=== PATIENT | male | born 1960 | race African-American/Black ===

== ENCOUNTER 2017-03-19 19:27 | Emergency (ER) | payer OTHER ==
[~2017-03-19] VITALS: Ht 208.3 cm; Wt 120.5 kg
[~2017-03-19 19:27] MED LIST: BUME2TAB18 PO; CARV3.1262 PO; ENAL10 PO; METO10TA8 PO; MS100DRIP PO; WARF5TAB6 PO
[2017-03-19] MEDS ORDERED: MORPHINE SULFATE 4 MG/ML SYRINGE IM ONE (20:15)
[2017-03-19] MEDS ORDERED: ONDANSETRON HCL 4 MG/2 ML VIAL IM ONE (20:15)
[2017-03-19 21:00] LABS: BASOPHILS % (AUTO) 0.3 % (0.0-2.0); EOSINOPHILS % (AUTO) 1.8 % (1.0-6.0); HEMATOCRIT 41.7 % (41-53); HEMOGLOBIN 13.8 g/dL (13.5-17.5); LYMPHOCYTES # (AUTO) 3.5 K/uL (1.0-4.8); LYMPHOCYTES % (AUTO) 51.1 % (22.0-44.0); MEAN CORPUSCULAR HEMOGLOBIN 31.8 pg (26.0-34.0); MEAN CORPUSCULAR VOLUME 97 fL (80-100); MONOCYTES # (AUTO) 0.5 K/uL (0.1-1.0); MONOCYTES % (AUTO) 7.5 % (2.0-9.0); NEUTROPHILS # (AUTO) 2.7 K/uL (1.8-7.7); NEUTROPHILS % (AUTO) 39.3 % (40.0-70.0); PLATELET COUNT (AUTO) 142 K/uL (150-450); RED BLOOD CELL COUNT(AUTO) 4.32 MIL/uL (4.50-5.90); RED CELL DISTRIBUTION WIDTH 14.6 % (11.5-14.5); WHITE BLOOD COUNT (AUTO) 6.9 K/uL (4.5-11.0)
[2017-03-19 21:10] LABS: INR 1.1 (0.9-1.1); PROTHROMBIN TIME 11.9 SEC (9.4-11.6)
[2017-03-19] MEDS ORDERED: OxyCODONE HCL/ACETAMINOPHEN 5-325 MG TABLET PO ONE (23:00)
[2017-03-19 23:04] VITALS: BP 126/65
== END 2017-03-19 23:07 | disposition home or self-care (01) ==
LOC: EMS 19:28
DX: M54.5 Low back pain (principal); G89.29 Other chronic pain; I11.0 Hypertensive heart disease with heart failure; I50.9 Heart failure, unspecified; I25.10 Atherosclerotic heart disease of native coronary artery without angina pectoris; I48.91 Unspecified atrial fibrillation; Z88.6 Allergy status to analgesic agent; Z88.8 Allergy status to other drugs, medicaments and biological substances; W01.0XXA Fall on same level from slipping, tripping and stumbling without subsequent striking against object, initial encounter; Y93.89 Activity, other specified; Y92.89 Other specified places as the place of occurrence of the external cause; Y99.8 Other external cause status
CPT/HCPCS: 36415; 70450; 72131; 85025; 85610; 85730; 96372; 99285; J2270; J2405

== ENCOUNTER 2017-08-09 20:23 | Inpatient (IN) | payer OTHER ==
[~2017-08-09] VITALS: Ht 208.3 cm; Wt 247.1 kg
[~2017-08-09 20:23] MED LIST changes: -ENAL10 PO; +ENAL10TA2 PO
[2017-08-09] MEDS ORDERED: KDUR20 PO (20:40)
[2017-08-09] MEDS ORDERED: ENAL20 PO (20:40)
[2017-08-09] MEDS ORDERED: ZARO2.5 PO (20:40)
[2017-08-09] MEDS ORDERED: EDOX15TA PO (20:40)
[2017-08-09] MEDS ORDERED: AMIO200T44 PO (20:40)
[2017-08-09] MEDS ORDERED: HYDR-309 PO (20:40)
[2017-08-09] MEDS ORDERED: MORP30CA17 PO (20:40)
[2017-08-09] MEDS ORDERED: BUME1TAB17 PO (20:40)
[2017-08-09] MEDS ORDERED: DIGO125T PO (20:40)
[2017-08-09 20:51] LABS: BASOPHILS % (AUTO) 0.9 % (0.0-2.0); EOSINOPHILS % (AUTO) 2.1 % (1.0-6.0); HEMOGLOBIN 14.3 g/dL (13.5-17.5); LYMPHOCYTES # (AUTO) 3.3 K/uL (1.0-4.8); LYMPHOCYTES % (AUTO) 47.5 % (22.0-44.0); MEAN CORPUSCULAR HEMOGLOBIN 33.1 pg (26.0-34.0); MEAN CORPUSCULAR VOLUME 97 fL (80-100); MONOCYTES # (AUTO) 0.4 K/uL (0.1-1.0); MONOCYTES % (AUTO) 5.1 % (2.0-9.0); NEUTROPHILS # (AUTO) 3.1 K/uL (1.8-7.7); NEUTROPHILS % (AUTO) 44.4 % (40.0-70.0); PLATELET COUNT (AUTO) 195 K/uL (150-450); RED BLOOD CELL COUNT(AUTO) 4.33 MIL/uL (4.50-5.90); RED CELL DISTRIBUTION WIDTH 14.8 % (11.5-14.5)
[2017-08-09 21:01] LABS: ANION GAP 12 mmol/L (8-16); CALCIUM, TOTAL 9.2 mg/dL (8.8-10.5); CARBON DIOXIDE 29 mmol/L (22-29); CHLORIDE 103 mmol/L (98-107); CREATININE 1.34 mg/dL (0.60-1.30); GLOMERULAR FILTR. RATE CALC > 60 mL/min (>60); GLUCOSE,RANDOM 68 mg/dL (70-110); POTASSIUM 3.1 mmol/L (3.5-5.1); SODIUM SERUM 144 mmol/L (136-145); UREA NITROGEN, BLOOD 16 mg/dL (7-18)
[2017-08-09 21:23] LABS: B-TYPE NATRIURETIC PEPTIDE 543 pg/mL (0-100)
[2017-08-09 21:26] LABS: ALANINE AMINOTRANSFERASE 6 U/L (12-78); ALKALINE PHOSPHATASE 51 U/L (46-116); ASPARTATE AMINOTRANSFERASE 15 U/L (15-37); BILIRUBIN,TOTAL 0.3 mg/dL (0.1-1.0); CREATINE KINASE, TOTAL 147 U/L (39-308); TOTAL PROTEIN, SERUM 8.4 g/dL (6.4-8.2)
[2017-08-09] MEDS ORDERED: ONDANSETRON HCL 4 MG/2 ML VIAL IVP ONE (21:30)
[2017-08-09] MEDS ORDERED: MORPHINE SULFATE 2 MG/ML SYRINGE IVP ONE (21:30)
[2017-08-09] MEDS ORDERED: NITROGLYCERIN 2% (1 GM=INCH) PACKET TP ONE (21:30)
[2017-08-09 21:54] LABS: DIGOXIN 0.58 ng/mL (0.90-2.00)
[2017-08-09] MEDS ORDERED: POTASSIUM CHLORIDE 10% 40 MEQ/30 ML LIQUID UDCUP PO ONE (22:30)
[2017-08-09] MEDS ORDERED: 0.9% SODIUM CHLORIDE 10 ML SYRINGE IVP PRN (23:00)
[2017-08-09] MEDS ORDERED: ONDANSETRON HCL 4 MG/2 ML VIAL IVP PRN ×2 (23:00→23:30)
[2017-08-09] MEDS ORDERED: ACETAMINOPHEN 325 MG TABLET PO PRN ×2 (23:00→23:30)
[2017-08-09 23:28] VITALS: BP 157/99
[2017-08-09] MEDS ORDERED: BISACODYL 10 MG RECTAL RECTAL SUPPOSITORY PR PRN (23:30)
[2017-08-09] MEDS ORDERED: MAGNESIUM HYDROXIDE SUSPENSION 30 ML UDCUP PO PRN (23:30)
[2017-08-09] MEDS ORDERED: ZOLPIDEM TARTRATE 5 MG TABLET PO PRN (23:30)
[2017-08-09] MEDS: NITROGLYCERIN 2% (1 GM=INCH) PACKET TP SCH (23:42)
[2017-08-09] MEDS: HEPARIN SODIUM,PORCINE 5,000 UNITS/ML VIAL SQ SCH (23:42)
[2017-08-10] MEDS: MORPHINE SULFATE 2 MG/ML SYRINGE IVP PRN ×5 (00:06→19:53)
[2017-08-10 05:46] VITALS: BP 150/88
[2017-08-10 07:06] LABS: BASOPHILS % (AUTO) 0.7 % (0.0-2.0); EOSINOPHILS % (AUTO) 2.1 % (1.0-6.0); HEMATOCRIT 34.6 % (41-53); HEMOGLOBIN 11.8 g/dL (13.5-17.5); LYMPHOCYTES # (AUTO) 2.5 K/uL (1.0-4.8); LYMPHOCYTES % (AUTO) 43.3 % (22.0-44.0); MEAN CORPUSCULAR HEMOGLOBIN 32.9 pg (26.0-34.0); MEAN CORPUSCULAR HGB CONC 34.1 G/dL (31.0-37.0); MEAN CORPUSCULAR VOLUME 97 fL (80-100); MONOCYTES # (AUTO) 0.6 K/uL (0.1-1.0); MONOCYTES % (AUTO) 10.9 % (2.0-9.0); NEUTROPHILS # (AUTO) 2.5 K/uL (1.8-7.7); PLATELET COUNT (AUTO) 155 K/uL (150-450); RED BLOOD CELL COUNT(AUTO) 3.58 MIL/uL (4.50-5.90)
[2017-08-10 07:26] VITALS: BP 152/88
[2017-08-10 07:33] LABS: ALBUMIN 3.1 g/dL (3.4-5.0); BILIRUBIN,TOTAL 0.3 mg/dL (0.1-1.0); CALCIUM, TOTAL 8.4 mg/dL (8.8-10.5); CHOL/HDL RATIO 1.6 (4.2-7.3); CREATININE 1.5 mg/dL (0.60-1.30); POTASSIUM 3.8 mmol/L (3.5-5.1); TOTAL PROTEIN, SERUM 6.2 g/dL (6.4-8.2)
[2017-08-10] MEDS: HEPARIN SODIUM,PORCINE 5,000 UNITS/ML VIAL SQ SCH (08:00)
[2017-08-10] MEDS: DOCUSATE SODIUM 100 MG CAPSULE PO SCH ×2 (09:00→19:52)
[2017-08-10] MEDS: BUMETANIDE 1 MG TABLET PO SCH (09:18)
[2017-08-10] MEDS: NITROGLYCERIN 2% (1 GM=INCH) PACKET TP SCH ×2 (09:18→15:56)
[2017-08-10] MEDS: POTASSIUM CHLORIDE 20 MEQ ER TABLET PO SCH ×2 (09:19→19:53)
[2017-08-10] MEDS: DIGOXIN 125 MCG TABLET PO SCH (09:19)
[2017-08-10] MEDS: PANTOPRAZOLE SODIUM 40 MG DR TABLET PO SCH (09:19)
[2017-08-10] MEDS: AMIODARONE HCL 200 MG TABLET PO SCH ×2 (09:19→19:53)
[2017-08-10] MEDS: CARVEDILOL 6.25 MG TABLET PO SCH ×2 (09:19→19:53)
[2017-08-10] MEDS: ENALAPRIL MALEATE 10 MG TABLET PO SCH (09:20)
[2017-08-10] MEDS: METOLAZONE 2.5 MG TABLET PO SCH ×2 (09:21→19:52)
[2017-08-10] MEDS: APIXABAN 5 MG TABLET PO SCH ×2 (10:27→19:53)
[2017-08-10 11:30] VITALS: BP 157/97
[2017-08-10 16:05] VITALS: BP 150/98
[2017-08-10 20:00] VITALS: BP 140/83
[2017-08-10 23:55] VITALS: BP 133/90
[2017-08-11] MEDS: NITROGLYCERIN 2% (1 GM=INCH) PACKET TP SCH ×3 (00:39→16:13)
[2017-08-11] MEDS: MORPHINE SULFATE 2 MG/ML SYRINGE IVP PRN ×3 (03:03→20:23)
[2017-08-11 04:00] VITALS: BP 153/94
[2017-08-11] MEDS: HYDROCODONE/ACETAMINOPHEN 5-325 MG TABLET PO PRN ×2 (05:28→16:13)
[2017-08-11 06:54] LABS: BASOPHILS # (AUTO) 0.01 K/uL (0.00-0.20); BASOPHILS % (AUTO) 0.1 % (0.0-2.0); EOSINOPHILS # (AUTO) 0.11 K/uL (0.00-0.70); EOSINOPHILS % (AUTO) 1.89 % (1.0-6.0); HEMATOCRIT 39.3 % (41-53); LYMPHOCYTES # (AUTO) 2.6 K/uL (1.0-4.8); LYMPHOCYTES % (AUTO) 43.8 % (22.0-44.0); MEAN CORPUSCULAR HEMOGLOBIN 32.6 pg (26.0-34.0); MEAN CORPUSCULAR VOLUME 99 fL (80-100); MONOCYTES # (AUTO) 0.6 K/uL (0.1-1.0); MONOCYTES % (AUTO) 9.3 % (2.0-9.0); NEUTROPHILS # (AUTO) 2.7 K/uL (1.8-7.7); NEUTROPHILS % (AUTO) 44.9 % (40.0-70.0); PLATELET COUNT (AUTO) 147 K/uL (150-450); RED BLOOD CELL COUNT(AUTO) 3.98 MIL/uL (4.50-5.90)
[2017-08-11 07:16] LABS: ANION GAP 6 mmol/L (8-16); CALCIUM, TOTAL 8.5 mg/dL (8.8-10.5); CARBON DIOXIDE 33 mmol/L (22-29); CHLORIDE 100 mmol/L (98-107); CREATININE 1.45 mg/dL (0.60-1.30); GLOMERULAR FILTR. RATE CALC > 60 mL/min (>60); GLUCOSE,RANDOM 88 mg/dL (70-110); POTASSIUM 4.1 mmol/L (3.5-5.1); SODIUM SERUM 139 mmol/L (136-145); UREA NITROGEN, BLOOD 21 mg/dL (7-18)
[2017-08-11 07:23] VITALS: BP 140/90
[2017-08-11] MEDS: DOCUSATE SODIUM 100 MG CAPSULE PO SCH ×2 (08:20→21:00)
[2017-08-11] MEDS: ENALAPRIL MALEATE 10 MG TABLET PO SCH (08:23)
[2017-08-11] MEDS: APIXABAN 5 MG TABLET PO SCH (08:23)
[2017-08-11] MEDS: DIGOXIN 125 MCG TABLET PO SCH (08:23)
[2017-08-11] MEDS: METOLAZONE 2.5 MG TABLET PO SCH ×2 (08:23→20:23)
[2017-08-11] MEDS: BUMETANIDE 1 MG TABLET PO SCH (08:24)
[2017-08-11] MEDS: AMIODARONE HCL 200 MG TABLET PO SCH (08:24)
[2017-08-11] MEDS: CARVEDILOL 6.25 MG TABLET PO SCH ×2 (08:24→20:23)
[2017-08-11] MEDS: POTASSIUM CHLORIDE 20 MEQ ER TABLET PO SCH ×2 (08:24→20:23)
[2017-08-11] MEDS: PANTOPRAZOLE SODIUM 40 MG DR TABLET PO SCH (08:24)
[2017-08-11 11:37] VITALS: BP 133/83
[2017-08-11 15:28] VITALS: BP 133/97
[2017-08-11 19:57] VITALS: BP 167/107
[2017-08-12] MEDS: NITROGLYCERIN 2% (1 GM=INCH) PACKET TP SCH ×2 (00:22→11:28)
[2017-08-12 00:45] VITALS: BP 134/85
[2017-08-12] MEDS: MORPHINE SULFATE 2 MG/ML SYRINGE IVP PRN (03:45)
[2017-08-12 05:00] VITALS: BP 164/95
[2017-08-12 06:26] LABS: BASOPHILS # (AUTO) 0.04 K/uL (0.00-0.20); BASOPHILS % (AUTO) 0.6 % (0.0-2.0); EOSINOPHILS # (AUTO) 0.13 K/uL (0.00-0.70); EOSINOPHILS % (AUTO) 2.17 % (1.0-6.0); HEMATOCRIT 38.6 % (41-53); HEMOGLOBIN 13.1 g/dL (13.5-17.5); LYMPHOCYTES # (AUTO) 2.1 K/uL (1.0-4.8); LYMPHOCYTES % (AUTO) 34.1 % (22.0-44.0); MEAN CORPUSCULAR HEMOGLOBIN 32.8 pg (26.0-34.0); MEAN CORPUSCULAR HGB CONC 33.9 G/dL (31.0-37.0); MEAN CORPUSCULAR VOLUME 97 fL (80-100); MONOCYTES # (AUTO) 0.6 K/uL (0.1-1.0); MONOCYTES % (AUTO) 9.7 % (2.0-9.0); NEUTROPHILS # (AUTO) 3.2 K/uL (1.8-7.7); NEUTROPHILS % (AUTO) 53.3 % (40.0-70.0); PLATELET COUNT (AUTO) 142 K/uL (150-450); RED BLOOD CELL COUNT(AUTO) 3.99 MIL/uL (4.50-5.90)
[2017-08-12 06:29] LABS: CALCIUM, TOTAL 8.4 mg/dL (8.8-10.5); CREATININE 1.63 mg/dL (0.60-1.30); POTASSIUM 3.6 mmol/L (3.5-5.1)
[2017-08-12 08:45] VITALS: BP 151/102
[2017-08-12] MEDS ORDERED: AMIODARONE HCL 200 MG TABLET PO SCH (09:00)
[2017-08-12 09:21] VITALS: BP 188/122
[2017-08-12] MEDS ORDERED: BENZOCAINE 20% 50 MCG/SPRAY 57 GM ONE (09:22)
[2017-08-12] MEDS ORDERED: MIDAZOLAM HCL 2 MG/2 ML VIAL ONE ×2 (09:55→10:09)
[2017-08-12] MEDS ORDERED: FentaNYL CITRATE-PF 100 MCG/2 ML VIAL ONE (09:55)
[2017-08-12] MEDS ORDERED: MIDAZOLAM HCL 2 MG/2 ML VIAL IVP ONE ×5 (10:00→10:30)
[2017-08-12] MEDS ORDERED: FentaNYL CITRATE-PF 100 MCG/2 ML VIAL IVP ONE ×5 (10:00→10:30)
[2017-08-12] MEDS ORDERED: BENZOCAINE 20% 50 MCG/SPRAY 57 GM TP ONE (10:15)
[2017-08-12 10:44] VITALS: BP 151/103
[2017-08-12] MEDS: CARVEDILOL 6.25 MG TABLET PO SCH (11:31)
[2017-08-12] MEDS: DOCUSATE SODIUM 100 MG CAPSULE PO SCH (11:31)
[2017-08-12] MEDS: HYDROCODONE/ACETAMINOPHEN 5-325 MG TABLET PO PRN (11:32)
[2017-08-12] MEDS: BUMETANIDE 1 MG TABLET PO SCH (11:33)
[2017-08-12] MEDS: POTASSIUM CHLORIDE 20 MEQ ER TABLET PO SCH (11:33)
[2017-08-12] MEDS: METOLAZONE 2.5 MG TABLET PO SCH (11:33)
[2017-08-12] MEDS: PANTOPRAZOLE SODIUM 40 MG DR TABLET PO SCH (11:33)
[2017-08-12] MEDS: ENALAPRIL MALEATE 10 MG TABLET PO SCH (11:33)
[2017-08-12 12:01] VITALS: BP 145/88
[2017-08-12] MEDS ORDERED: METOPROLOL TARTRATE 5 MG/5 ML VIAL ONE (12:35)
[2017-08-12] MEDS ORDERED: NITROGLYCERIN 400 MCG/SUBLINGUAL SPRAY 4.9 GM BOTTLE SL ONE (12:36)
[2017-08-12] MEDS ORDERED: IOVERSOL 350 MG/ML 150 ML VIAL ONE (12:41)
[2017-08-12] MEDS ORDERED: SODIUM CHLORIDE 0.9% 1,000 ML IV ONE (12:42)
== END 2017-08-12 15:15 | disposition home or self-care (01) | DRG 198 ==
LOC: EMS 20:25 → 5N 22:48
PROVIDERS: ADMIT Internal Medicine; ATTEND Internal Medicine
PROC: 4B02XTZ Measurement of Cardiac Defibrillator, External Approach (ICD-10-PCS; 2017-08-11)
PROC: B245ZZ4 Ultrasonography of Left Heart, Transesophageal (ICD-10-PCS; principal; 2017-08-12)
DX: R07.9 Chest pain, unspecified (principal); I25.10 Atherosclerotic heart disease of native coronary artery without angina pectoris; I50.20 Unspecified systolic (congestive) heart failure; I42.0 Dilated cardiomyopathy; I13.0 Hypertensive heart and chronic kidney disease with heart failure and stage 1 through stage 4 chronic kidney disease, or unspecified chronic kidney disease; E87.6 Hypokalemia; I48.2 Chronic atrial fibrillation; F17.200 Nicotine dependence, unspecified, uncomplicated; I07.1 Rheumatic tricuspid insufficiency; G89.29 Other chronic pain; M54.9 Dorsalgia, unspecified; S00.03XA Contusion of scalp, initial encounter; W18.30XA Fall on same level, unspecified, initial encounter; N18.3 Chronic kidney disease, stage 3 (moderate); Z95.810 Presence of automatic (implantable) cardiac defibrillator; Z88.6 Allergy status to analgesic agent; Z79.899 Other long term (current) drug therapy; Y93.89 Activity, other specified; Y92.89 Other specified places as the place of occurrence of the external cause; Y99.8 Other external cause status
CPT/HCPCS: 70450; 75574; 93005; 93306; 93312; 93880; 96374; 99291; J1644; J2250; J2270; J2405; J3010; J3490; J7030

== ENCOUNTER 2017-09-01 22:14 | Inpatient (IN) | payer OTHER ==
[~2017-09-01] VITALS: Ht 208.3 cm; Wt 116.1 kg
[~2017-09-01 22:14] MED LIST changes: +AMIO200T44 PO; +BUME1TAB17 PO; -BUME2TAB18 PO; +EDOX15TA PO; -ENAL10TA2 PO; +ENAL20 PO; +HYDR-309 PO; +KDUR20 PO; -METO10TA8 PO; +MORP30CA17 PO; -MS100DRIP PO; -WARF5TAB6 PO; +ZARO2.5 PO
[2017-09-01 22:31] LABS: BASOPHILS % (AUTO) 0.6 % (0.0-2.0); EOSINOPHILS % (AUTO) 1.9 % (1.0-6.0); HEMATOCRIT 42.2 % (41-53); HEMOGLOBIN 14.2 g/dL (13.5-17.5); LYMPHOCYTES # (AUTO) 4.7 K/uL (1.0-4.8); LYMPHOCYTES % (AUTO) 53.9 % (22.0-44.0); MEAN CORPUSCULAR HEMOGLOBIN 32.6 pg (26.0-34.0); MEAN CORPUSCULAR HGB CONC 33.6 G/dL (31.0-37.0); MEAN CORPUSCULAR VOLUME 97 fL (80-100); MONOCYTES # (AUTO) 0.5 K/uL (0.1-1.0); MONOCYTES % (AUTO) 5.4 % (2.0-9.0); NEUTROPHILS # (AUTO) 3.4 K/uL (1.8-7.7); NEUTROPHILS % (AUTO) 38.2 % (40.0-70.0); PLATELET COUNT (AUTO) 150 K/uL (150-450); RED BLOOD CELL COUNT(AUTO) 4.34 MIL/uL (4.50-5.90); RED CELL DISTRIBUTION WIDTH 15.3 % (11.5-14.5); WHITE BLOOD COUNT (AUTO) 8.8 K/uL (4.5-11.0)
[2017-09-01 22:42] LABS: INR 1.1 (0.9-1.1); PROTHROMBIN TIME 11.5 SEC (9.4-11.6)
[2017-09-01 22:45] LABS: ANION GAP 13 mmol/L (8-16); CALCIUM, TOTAL 8.8 mg/dL (8.8-10.5); CARBON DIOXIDE 27 mmol/L (22-29); CHLORIDE 100 mmol/L (98-107); GLOMERULAR FILTR. RATE CALC 59 mL/min (>60); POTASSIUM 3.1 mmol/L (3.5-5.1); SODIUM SERUM 140 mmol/L (136-145); UREA NITROGEN, BLOOD 20 mg/dL (7-18)
[2017-09-01 22:54] LABS: B-TYPE NATRIURETIC PEPTIDE 427 pg/mL (0-100)
[2017-09-01] MEDS ORDERED: ONDANSETRON HCL 4 MG/2 ML VIAL IVP ONE (23:00)
[2017-09-01] MEDS ORDERED: MORPHINE SULFATE 4 MG/ML SYRINGE IVP ONE (23:00)
[2017-09-01] MEDS ORDERED: NITROGLYCERIN 2% (1 GM=INCH) PACKET TP ONE (23:00)
[2017-09-01 23:09] LABS: ALANINE AMINOTRANSFERASE 10 U/L (12-78); ASPARTATE AMINOTRANSFERASE 17 U/L (15-37); BILIRUBIN,TOTAL 0.4 mg/dL (0.1-1.0); CREATINE KINASE, TOTAL 152 U/L (39-308); TOTAL PROTEIN, SERUM 8.3 g/dL (6.4-8.2)
[2017-09-01 23:37] LABS: CREATINE KINASE MB 1.6 ng/mL (0-5)
[2017-09-01] MEDS ORDERED: SODIUM CHLORIDE 0.9% 500 ML IV ONE (23:45)
[2017-09-02] MEDS ORDERED: POTASSIUM CHLORIDE 20 MEQ ER TABLET PO ONE
[2017-09-02] MEDS ORDERED: OXYGEN THERAPY IH SCH
[2017-09-02] MEDS ORDERED: MORPHINE SULFATE 4 MG/ML SYRINGE IVP ONE
[2017-09-02 01:03] LABS: GLUCOSE,POINT OF CARE 78 MG/DL (70-110)
[2017-09-02] MEDS ORDERED: ONDANSETRON HCL 4 MG/2 ML VIAL IVP PRN (01:30)
[2017-09-02] MEDS ORDERED: 0.9% SODIUM CHLORIDE 10 ML SYRINGE IVP PRN (01:30)
[2017-09-02] MEDS ORDERED: ACETAMINOPHEN 325 MG TABLET PO PRN ×2 (01:30→04:00)
[2017-09-02 03:11] VITALS: BP 129/98
[2017-09-02] MEDS ORDERED: NITROGLYCERIN 2% (1 GM=INCH) PACKET TP PRN (04:00)
[2017-09-02] MEDS ORDERED: NITROGLYCERIN 0.4 MG SUBLINGUAL TABLET #25 SL PRN (04:00)
[2017-09-02] MEDS ORDERED: HYDROCODONE/ACETAMINOPHEN 5-325 MG TABLET PO PRN (04:00)
[2017-09-02 07:54] VITALS: BP 148/100
[2017-09-02] MEDS: BUMETANIDE 1 MG TABLET PO SCH (08:14)
[2017-09-02] MEDS: POTASSIUM CHLORIDE 20 MEQ ER TABLET PO SCH ×2 (08:14→20:32)
[2017-09-02] MEDS: ENALAPRIL MALEATE 20 MG TABLET PO SCH (08:15)
[2017-09-02] MEDS: MORPHINE SULFATE 2 MG/ML SYRINGE IVP PRN ×4 (08:15→22:26)
[2017-09-02] MEDS: CARVEDILOL 3.125 MG TABLET PO SCH ×2 (08:15→20:32)
[2017-09-02] MEDS ORDERED: METOLAZONE 2.5 MG TABLET PO SCH (09:00)
[2017-09-02] MEDS ORDERED: [UNRECOGNIZED DRUG - OTHER] PO SCH (09:00)
[2017-09-02] MEDS: AMIODARONE HCL 200 MG TABLET PO SCH ×2 (09:48→20:32)
[2017-09-02] MEDS ORDERED: CARV6 PO (10:40)
[2017-09-02 11:21] VITALS: BP 136/100
[2017-09-02] MEDS ORDERED: HydrALAZINE HCL 20 MG/ML VIAL IVP PRN (11:30)
[2017-09-02 15:55] VITALS: BP 132/91
[2017-09-02 19:38] VITALS: BP 121/87
[2017-09-03 00:13] VITALS: BP 150/95
[2017-09-03 04:38] VITALS: BP 138/94
[2017-09-03 07:07] LABS: BASOPHILS % (AUTO) 0.1 % (0.0-2.0); EOSINOPHILS % (AUTO) 1.6 % (1.0-6.0); HEMATOCRIT 36.2 % (41-53); HEMOGLOBIN 12.2 g/dL (13.5-17.5); LYMPHOCYTES # (AUTO) 2.4 K/uL (1.0-4.8); LYMPHOCYTES % (AUTO) 34.6 % (22.0-44.0); MEAN CORPUSCULAR HEMOGLOBIN 33.1 pg (26.0-34.0); MEAN CORPUSCULAR HGB CONC 33.6 G/dL (31.0-37.0); MEAN CORPUSCULAR VOLUME 99 fL (80-100); MONOCYTES # (AUTO) 0.3 K/uL (0.1-1.0); NEUTROPHILS # (AUTO) 4.1 K/uL (1.8-7.7); NEUTROPHILS % (AUTO) 59.7 % (40.0-70.0); PLATELET COUNT (AUTO) 115 K/uL (150-450); RED BLOOD CELL COUNT(AUTO) 3.67 MIL/uL (4.50-5.90); RED CELL DISTRIBUTION WIDTH 15.5 % (11.5-14.5); WHITE BLOOD COUNT (AUTO) 6.9 K/uL (4.5-11.0)
[2017-09-03 07:31] LABS: ALBUMIN 2.9 g/dL (3.4-5.0); BILIRUBIN,TOTAL 0.7 mg/dL (0.1-1.0); CALCIUM, TOTAL 8.1 mg/dL (8.8-10.5); CHOL/HDL RATIO 1.4 (4.2-7.3); CREATININE 1.48 mg/dL (0.60-1.30); MAGNESIUM 1.2 mg/dL (1.80-2.40); POTASSIUM 4.5 mmol/L (3.5-5.1); TOTAL PROTEIN, SERUM 5.8 g/dL (6.4-8.2)
[2017-09-03 07:33] VITALS: BP 137/93
[2017-09-03] MEDS: POTASSIUM CHLORIDE 20 MEQ ER TABLET PO SCH (08:09)
[2017-09-03] MEDS: AMIODARONE HCL 200 MG TABLET PO SCH (08:09)
[2017-09-03] MEDS: BUMETANIDE 1 MG TABLET PO SCH (08:09)
[2017-09-03] MEDS: ENALAPRIL MALEATE 20 MG TABLET PO SCH (08:09)
[2017-09-03] MEDS: MORPHINE SULFATE 2 MG/ML SYRINGE IVP PRN (08:10)
[2017-09-03] MEDS: CARVEDILOL 3.125 MG TABLET PO SCH (10:15)
[2017-09-03 11:12] VITALS: BP 128/81
[2017-09-04] MEDS ORDERED: POTASSIUM CHLORIDE 20 MEQ ER TABLET PO SCH (08:00)
== END 2017-09-03 14:10 | disposition home or self-care (01) | DRG 198 ==
LOC: EMS 22:14 → 5N 09-02 01:25
PROVIDERS: ADMIT Internal Medicine; ATTEND Internal Medicine
DX: R07.9 Chest pain, unspecified (principal); I25.10 Atherosclerotic heart disease of native coronary artery without angina pectoris; I13.0 Hypertensive heart and chronic kidney disease with heart failure and stage 1 through stage 4 chronic kidney disease, or unspecified chronic kidney disease; I50.22 Chronic systolic (congestive) heart failure; I42.9 Cardiomyopathy, unspecified; R55 Syncope and collapse; I48.2 Chronic atrial fibrillation; G89.29 Other chronic pain; F32.9 Major depressive disorder, single episode, unspecified; R42 Dizziness and giddiness; N18.9 Chronic kidney disease, unspecified; M54.5 Low back pain; M48.00 Spinal stenosis, site unspecified; M47.9 Spondylosis, unspecified; Z95.810 Presence of automatic (implantable) cardiac defibrillator; Z87.891 Personal history of nicotine dependence; Z88.6 Allergy status to analgesic agent; Z79.899 Other long term (current) drug therapy; Z79.01 Long term (current) use of anticoagulants
CPT/HCPCS: 82948; 82962; 83735; 84132; 87081; 93005; 93306; 96361; 96374; 96375; 96376; 99285; J2270; J2405; J7030

== ENCOUNTER 2017-09-19 04:02 | Emergency (ER) | payer OTHER ==
[~2017-09-19] VITALS: Ht 208.3 cm; Wt 118.2 kg
[~2017-09-19 04:02] MED LIST changes: -CARV3.1262 PO; +CARV6 PO; -KDUR20 PO; -MORP30CA17 PO; -ZARO2.5 PO
[2017-09-19] MEDS ORDERED: MORP30TA11 PO (04:13)
[2017-09-19] MEDS ORDERED: MORPHINE SULFATE 4 MG/ML SYRINGE IVP ONE (04:15)
[2017-09-19] MEDS ORDERED: CARVEDILOL 3.125 MG TABLET PO ONE (04:30)
[2017-09-19 04:42] LABS: HEMATOCRIT 41.9 % (41-53); HEMOGLOBIN 14.2 g/dL (13.5-17.5); MEAN CORPUSCULAR HEMOGLOBIN 33.4 pg (26.0-34.0); MEAN CORPUSCULAR HGB CONC 33.9 G/dL (31.0-37.0); MEAN CORPUSCULAR VOLUME 99 fL (80-100); RED BLOOD CELL COUNT(AUTO) 4.25 MIL/uL (4.50-5.90); RED CELL DISTRIBUTION WIDTH 16.1 % (11.5-14.5); WHITE BLOOD COUNT (AUTO) 4.9 K/uL (4.5-11.0)
[2017-09-19 04:46] LABS: ANION GAP 12 mmol/L (8-16); CARBON DIOXIDE 26 mmol/L (22-29); CHLORIDE 101 mmol/L (98-107); CREATININE 1.34 mg/dL (0.60-1.30); GLOMERULAR FILTR. RATE CALC > 60 mL/min (>60); POTASSIUM 4.3 mmol/L (3.5-5.1); SODIUM SERUM 139 mmol/L (136-145); UREA NITROGEN, BLOOD 12 mg/dL (7-18)
[2017-09-19 04:52] LABS: ALANINE AMINOTRANSFERASE 13 U/L (12-78); ALBUMIN 3.8 g/dL (3.4-5.0); ASPARTATE AMINOTRANSFERASE 18 U/L (15-37); BILIRUBIN,TOTAL 0.7 mg/dL (0.1-1.0); TOTAL PROTEIN, SERUM 7.9 g/dL (6.4-8.2)
[2017-09-19 05:10] LABS: PLATELET COUNT (AUTO) 138 K/uL (150-450)
[2017-09-19 05:11] LABS: EOSINOPHILS % (MANUAL) 2 % (1-6); LYMPHOCYTES % (MANUAL) 43 % (22-44); TOTAL CELLS COUNTED 100
[2017-09-19 05:13] LABS: B-TYPE NATRIURETIC PEPTIDE 847 pg/mL (0-100)
[2017-09-19 05:36] VITALS: BP 136/82
== END 2017-09-19 05:56 | disposition home or self-care (01) ==
LOC: EMS 04:03
DX: I20.8 Other forms of angina pectoris (principal); I11.0 Hypertensive heart disease with heart failure; I50.9 Heart failure, unspecified; I25.10 Atherosclerotic heart disease of native coronary artery without angina pectoris; I48.91 Unspecified atrial fibrillation; I10 Essential (primary) hypertension; Z95.0 Presence of cardiac pacemaker; Z88.6 Allergy status to analgesic agent; Z76.0 Encounter for issue of repeat prescription
CPT/HCPCS: 36415; 71010; 80053; 83880; 84484; 85025; 93005; 96374; 99285; J2270

== ENCOUNTER 2019-01-06 13:56 | Inpatient (IN) | payer OTHER ==
[~2019-01-06] VITALS: Ht 208.3 cm; Wt 124.3 kg
[~2019-01-06 13:56] MED LIST changes: +MORP30TA11 PO
[2019-01-06] MEDS ORDERED: HYDR10TA31 PO (14:05)
[2019-01-06] MEDS ORDERED: FURO20 PO (14:05)
[2019-01-06] MEDS ORDERED: APIX2.5T PO (14:05)
[2019-01-06 15:31] LABS: BASOPHILS % (AUTO) 1.6 % (0.0-2.0); EOSINOPHILS % (AUTO) 1.4 % (1.0-6.0); HEMATOCRIT 37.1 % (41-53); LYMPHOCYTES # (AUTO) 1.5 K/uL (1.0-4.8); LYMPHOCYTES % (AUTO) 35.6 % (22.0-44.0); MEAN CORPUSCULAR HEMOGLOBIN 31.8 pg (26.0-34.0); MEAN CORPUSCULAR HGB CONC 32.3 G/dL (31.0-37.0); MEAN CORPUSCULAR VOLUME 98 fL (80-100); MONOCYTES # (AUTO) 0.4 K/uL (0.1-1.0); MONOCYTES % (AUTO) 8.9 % (2.0-9.0); NEUTROPHILS # (AUTO) 2.2 K/uL (1.8-7.7); NEUTROPHILS % (AUTO) 52.5 % (40.0-70.0); PLATELET COUNT (AUTO) 171 K/uL (150-450); RED BLOOD CELL COUNT(AUTO) 3.77 MIL/uL (4.50-5.90); RED CELL DISTRIBUTION WIDTH 14.9 % (11.5-14.5)
[2019-01-06 15:44] LABS: ANION GAP 13 mmol/L (8-16); CALCIUM, TOTAL 9.1 mg/dL (8.8-10.5); CARBON DIOXIDE 24 mmol/L (22-29); CHLORIDE 104 mmol/L (98-107); GLOMERULAR FILTR. RATE CALC > 60 mL/min (>60); GLUCOSE,RANDOM 57 mg/dL (70-110); SODIUM SERUM 141 mmol/L (136-145); UREA NITROGEN, BLOOD 25 mg/dL (7-18)
[2019-01-06 15:45] LABS: PROTHROMBIN TIME 10.9 SEC (9.4-11.6)
[2019-01-06 15:55] LABS: B-TYPE NATRIURETIC PEPTIDE 1290 pg/mL (0-100)
[2019-01-06 16:09] LABS: ALANINE AMINOTRANSFERASE 11 U/L (12-78); ALBUMIN 3.7 g/dL (3.4-5.0); ALKALINE PHOSPHATASE 60 U/L (46-116); ASPARTATE AMINOTRANSFERASE 24 U/L (15-37); BILIRUBIN,TOTAL 0.4 mg/dL (0.1-1.0); CREATINE KINASE, TOTAL ONLY 185 U/L (39-308); TOTAL PROTEIN, SERUM 7.4 g/dL (6.4-8.2)
[2019-01-06] MEDS ORDERED: APIX5TAB PO (17:00)
[2019-01-06] MEDS ORDERED: MORPHINE SULFATE 4 MG/ML SYRINGE IVP ONE (17:00)
[2019-01-06] MEDS ORDERED: FUROSEMIDE 40 MG/4 ML VIAL IVP ONE (17:45)
[2019-01-06] MEDS ORDERED: ACETAMINOPHEN 325 MG TABLET PO PRN ×2 (18:30→18:45)
[2019-01-06] MEDS ORDERED: ONDANSETRON HCL 4 MG/2 ML VIAL IVP PRN ×2 (18:30→18:45)
[2019-01-06] MEDS ORDERED: 0.9% SODIUM CHLORIDE 10 ML SYRINGE IVP PRN (18:30)
[2019-01-06] MEDS ORDERED: POTASSIUM CHLORIDE 20 MEQ ER TABLET PO PRN (18:45)
[2019-01-06] MEDS ORDERED: MAGNESIUM SULFATE 2 GM/WATER 50 ML IV PRN (18:45)
[2019-01-06] MEDS ORDERED: POTASSIUM CHL 10 MEQ/WATER 50 ML IV PRN (18:45)
[2019-01-06] MEDS ORDERED: BISACODYL 10 MG RECTAL RECTAL SUPPOSITORY PR PRN (18:45)
[2019-01-06] MEDS ORDERED: MAGNESIUM SULFATE 4 GM/WATER 100 ML IV PRN (18:45)
[2019-01-06] MEDS ORDERED: MAGNESIUM HYDROXIDE SUSPENSION 30 ML UDCUP PO PRN (18:45)
[2019-01-06 18:55] LABS: APPEARANCE,URINE CLEAR (CLEAR); BILIRUBIN,URINE NEGATIVE (NEGATIVE); GLUCOSE, URINE (UA) NEGATIVE (NEGATIVE); KETONES,URINE NEGATIVE (NEGATIVE); LEUKOCYTE ESTERASE ,URINE NEGATIVE (NEGATIVE); NITRATE,URINE NEGATIVE (NEGATIVE); OCCULT BLOOD,URINE NEGATIVE (NEGATIVE); UROBILINOGEN,URINE 0.2 mg/dL (<=1.0)
[2019-01-06 18:59] LABS: PROTEIN,URINE NEGATIVE (NEGATIVE)
[2019-01-06] MEDS: MORPHINE SULFATE 2 MG/ML SYRINGE IVP PRN (20:45)
[2019-01-06] MEDS: APIXABAN 5 MG TABLET PO SCH (22:47)
[2019-01-06] MEDS: AMIODARONE HCL 200 MG TABLET PO SCH (22:47)
[2019-01-06] MEDS: NITROGLYCERIN 2% (1 GM=INCH) PACKET TP SCH (22:48)
[2019-01-06 23:00] VITALS: BP 150/96
[2019-01-07] MEDS: OxyCODONE HCL/ACETAMINOPHEN 5-325 MG TABLET PO PRN ×2 (00:17→09:03)
[2019-01-07] MEDS: ZOLPIDEM TARTRATE 5 MG TABLET PO PRN ×2 (00:17→20:28)
[2019-01-07] MEDS: MORPHINE SULFATE 2 MG/ML SYRINGE IVP PRN ×3 (03:17→18:40)
[2019-01-07] MEDS: NITROGLYCERIN 2% (1 GM=INCH) PACKET TP SCH ×3 (05:47→18:37)
[2019-01-07 05:49] VITALS: BP 144/87
[2019-01-07 05:50] LABS: BASOPHILS % (AUTO) 0.6 % (0.0-2.0); HEMATOCRIT 34.6 % (41-53); HEMOGLOBIN 11.2 g/dL (13.5-17.5); LYMPHOCYTES # (AUTO) 1.6 K/uL (1.0-4.8); LYMPHOCYTES % (AUTO) 37.3 % (22.0-44.0); MEAN CORPUSCULAR HGB CONC 32.5 G/dL (31.0-37.0); MEAN CORPUSCULAR VOLUME 98 fL (80-100); MONOCYTES # (AUTO) 0.5 K/uL (0.1-1.0); MONOCYTES % (AUTO) 12.4 % (2.0-9.0); NEUTROPHILS # (AUTO) 2.1 K/uL (1.8-7.7); NEUTROPHILS % (AUTO) 47.7 % (40.0-70.0); PLATELET COUNT (AUTO) 157 K/uL (150-450); RED BLOOD CELL COUNT(AUTO) 3.52 MIL/uL (4.50-5.90)
[2019-01-07 06:41] LABS: ALANINE AMINOTRANSFERASE 6 U/L (12-78); ALBUMIN 3.2 g/dL (3.4-5.0); ALKALINE PHOSPHATASE 53 U/L (46-116); ANION GAP 12 mmol/L (8-16); ASPARTATE AMINOTRANSFERASE 18 U/L (15-37); BILIRUBIN,TOTAL 0.5 mg/dL (0.1-1.0); CALCIUM, TOTAL 8.6 mg/dL (8.8-10.5); CARBON DIOXIDE 24 mmol/L (22-29); CHLORIDE 104 mmol/L (98-107); CHOL/HDL RATIO 1.7 (4.2-7.3); CHOLESTEROL 133 mg/dL (131-200); CREATININE 1.64 mg/dL (0.60-1.30); GLOMERULAR FILTR. RATE CALC 53 mL/min (>60); GLUCOSE,RANDOM 110 mg/dL (70-110); HDL CHOLESTEROL 79 mg/dL (40-60); LDL CHOL (CALC.) 43 mg/dL (0-130); PHOSPHORUS 3.8 mg/dL (2.5-4.9); POTASSIUM 3.7 mmol/L (3.5-5.1); SODIUM SERUM 140 mmol/L (136-145); THYROID STIMULATING HORMONE 5.28 uIU/mL (0.36-3.74); TOTAL PROTEIN, SERUM 6.7 g/dL (6.4-8.2); TRIGLYCERIDES 54 mg/dL (15-150); UREA NITROGEN, BLOOD 31 mg/dL (7-18)
[2019-01-07] MEDS: IPRATROPIUM BROMIDE 0.5 MG/2.5 ML NEB SOLUTION NEB PRN ×2 (06:41→17:07)
[2019-01-07] MEDS: ALBUTEROL SULFATE 2.5 MG/0.5 ML NEB SOLUTION NEB PRN ×2 (06:41→17:08)
[2019-01-07] MEDS ORDERED: GuaiFENesin/D-METHORPHAN/PHENYLEPH 5 ML LIQUID ORAL.SYG PO PRN (07:15)
[2019-01-07 07:34] VITALS: BP 138/90
[2019-01-07 07:56] LABS: HEMOGLOBIN A1C 5.2 % (4.5-6.2)
[2019-01-07] MEDS ORDERED: HydrALAZINE HCL 10 MG TABLET PO SCH (09:00)
[2019-01-07] MEDS ORDERED: FUROSEMIDE 40 MG/4 ML VIAL IVP SCH (09:00)
[2019-01-07] MEDS: AMIODARONE HCL 200 MG TABLET PO SCH ×2 (09:02→20:28)
[2019-01-07] MEDS: DIGOXIN 125 MCG TABLET PO SCH (09:02)
[2019-01-07] MEDS: SACUBITRIL/VALSARTAN 24-26 MG TABLET PO SCH ×2 (09:02→20:28)
[2019-01-07] MEDS: HydrALAZINE HCL 10 MG TABLET PO SCH ×3 (09:02→20:28)
[2019-01-07] MEDS: FAMOTIDINE 20 MG TABLET PO SCH (09:03)
[2019-01-07] MEDS: APIXABAN 5 MG TABLET PO SCH ×2 (09:03→20:28)
[2019-01-07] MEDS: GuaiFENesin SR 600 MG ER TABLET PO SCH ×2 (09:03→20:28)
[2019-01-07] MEDS: ISOSORBIDE DINITRATE 20 MG TABLET PO SCH ×3 (09:03→20:27)
[2019-01-07] MEDS: CARVEDILOL 6.25 MG TABLET PO SCH ×2 (09:05→20:28)
[2019-01-07 10:13] LABS: DIGOXIN < 0.20 ng/mL (0.90-2.00)
[2019-01-07 11:09] VITALS: BP 131/105
[2019-01-07 16:08] VITALS: BP 134/82
[2019-01-07 21:21] VITALS: BP 159/105
[2019-01-08 00:40] VITALS: BP 147/74
[2019-01-08] MEDS: NITROGLYCERIN 2% (1 GM=INCH) PACKET TP SCH ×4 (00:50→19:01)
[2019-01-08] MEDS: MORPHINE SULFATE 2 MG/ML SYRINGE IVP PRN ×3 (00:50→16:29)
[2019-01-08] MEDS: OxyCODONE HCL/ACETAMINOPHEN 5-325 MG TABLET PO PRN ×2 (04:10→21:21)
[2019-01-08 04:12] VITALS: BP 145/86
[2019-01-08 06:03] LABS: ALANINE AMINOTRANSFERASE 9 U/L (12-78); ALBUMIN 3.2 g/dL (3.4-5.0); ALKALINE PHOSPHATASE 57 U/L (46-116); ANION GAP 11 mmol/L (8-16); ASPARTATE AMINOTRANSFERASE 14 U/L (15-37); BILIRUBIN,TOTAL 0.6 mg/dL (0.1-1.0); CALCIUM, TOTAL 8.8 mg/dL (8.8-10.5); CARBON DIOXIDE 25 mmol/L (22-29); CHLORIDE 103 mmol/L (98-107); CREATININE 1.42 mg/dL (0.60-1.30); GLOMERULAR FILTR. RATE CALC > 60 mL/min (>60); GLUCOSE,RANDOM 101 mg/dL (70-110); POTASSIUM 4.1 mmol/L (3.5-5.1); SODIUM SERUM 139 mmol/L (136-145); TOTAL PROTEIN, SERUM 6.5 g/dL (6.4-8.2); UREA NITROGEN, BLOOD 30 mg/dL (7-18)
[2019-01-08 06:04] LABS: BASOPHILS % (AUTO) 1.2 % (0.0-2.0); EOSINOPHILS % (AUTO) 1.2 % (1.0-6.0); HEMATOCRIT 33.3 % (41-53); LYMPHOCYTES # (AUTO) 1.3 K/uL (1.0-4.8); LYMPHOCYTES % (AUTO) 26.1 % (22.0-44.0); MEAN CORPUSCULAR HEMOGLOBIN 32.3 pg (26.0-34.0); MEAN CORPUSCULAR HGB CONC 32.9 G/dL (31.0-37.0); MEAN CORPUSCULAR VOLUME 98 fL (80-100); MONOCYTES # (AUTO) 0.5 K/uL (0.1-1.0); MONOCYTES % (AUTO) 10.7 % (2.0-9.0); NEUTROPHILS % (AUTO) 60.8 % (40.0-70.0); PLATELET COUNT (AUTO) 131 K/uL (150-450); RED CELL DISTRIBUTION WIDTH 14.5 % (11.5-14.5)
[2019-01-08 08:11] VITALS: BP 142/98
[2019-01-08] MEDS: FAMOTIDINE 20 MG TABLET PO SCH (08:16)
[2019-01-08] MEDS: AMIODARONE HCL 200 MG TABLET PO SCH ×2 (08:16→21:22)
[2019-01-08] MEDS: HydrALAZINE HCL 10 MG TABLET PO SCH ×3 (08:17→21:21)
[2019-01-08] MEDS: GuaiFENesin SR 600 MG ER TABLET PO SCH ×2 (08:17→21:21)
[2019-01-08] MEDS: ISOSORBIDE DINITRATE 20 MG TABLET PO SCH ×3 (08:18→21:21)
[2019-01-08] MEDS: SACUBITRIL/VALSARTAN 24-26 MG TABLET PO SCH ×2 (08:18→21:21)
[2019-01-08] MEDS: APIXABAN 5 MG TABLET PO SCH ×2 (08:18→21:21)
[2019-01-08] MEDS: DIGOXIN 125 MCG TABLET PO SCH (08:18)
[2019-01-08] MEDS: MAGNESIUM OXIDE 400 MG TABLET PO PRN (08:19)
[2019-01-08] MEDS: FUROSEMIDE 40 MG/4 ML VIAL IVP SCH ×2 (08:19→21:22)
[2019-01-08] MEDS: CARVEDILOL 12.5 MG TABLET PO SCH ×2 (08:31→21:21)
[2019-01-08 10:54] VITALS: BP 141/96
[2019-01-08 15:13] VITALS: BP 140/98
[2019-01-08] MEDS: ALBUTEROL SULFATE 2.5 MG/0.5 ML NEB SOLUTION NEB PRN (15:44)
[2019-01-08] MEDS: IPRATROPIUM BROMIDE 0.5 MG/2.5 ML NEB SOLUTION NEB PRN (15:44)
[2019-01-08 20:09] VITALS: BP 148/98
[2019-01-09 00:01] VITALS: BP 139/93
[2019-01-09] MEDS: MORPHINE SULFATE 2 MG/ML SYRINGE IVP PRN ×2 (00:16→12:15)
[2019-01-09] MEDS: ZOLPIDEM TARTRATE 5 MG TABLET PO PRN (00:16)
[2019-01-09] MEDS: MAGNESIUM OXIDE 400 MG TABLET PO PRN ×2 (05:03→08:42)
[2019-01-09 05:06] VITALS: BP 118/85
[2019-01-09] MEDS: NITROGLYCERIN 2% (1 GM=INCH) PACKET TP SCH ×3 (05:07→12:15)
[2019-01-09] MEDS: ALBUTEROL SULFATE 2.5 MG/0.5 ML NEB SOLUTION NEB PRN (07:04)
[2019-01-09] MEDS: IPRATROPIUM BROMIDE 0.5 MG/2.5 ML NEB SOLUTION NEB PRN (07:04)
[2019-01-09] MEDS ORDERED: ALBUTEROL SULFATE 2.5 MG/0.5 ML NEB SOLUTION NEB SCH (08:00)
[2019-01-09 08:36] VITALS: BP 122/90
[2019-01-09] MEDS: APIXABAN 5 MG TABLET PO SCH (08:40)
[2019-01-09] MEDS: FUROSEMIDE 40 MG/4 ML VIAL IVP SCH (08:40)
[2019-01-09] MEDS: CARVEDILOL 12.5 MG TABLET PO SCH (08:40)
[2019-01-09] MEDS: HydrALAZINE HCL 10 MG TABLET PO SCH (08:40)
[2019-01-09] MEDS: AMIODARONE HCL 200 MG TABLET PO SCH (08:41)
[2019-01-09] MEDS: ISOSORBIDE DINITRATE 20 MG TABLET PO SCH (08:41)
[2019-01-09] MEDS: GuaiFENesin SR 600 MG ER TABLET PO SCH (08:41)
[2019-01-09] MEDS: FAMOTIDINE 20 MG TABLET PO SCH (08:41)
[2019-01-09] MEDS: SACUBITRIL/VALSARTAN 24-26 MG TABLET PO SCH (08:41)
[2019-01-09] MEDS: DIGOXIN 125 MCG TABLET PO SCH (08:44)
[2019-01-09 11:28] VITALS: BP 141/86
== END 2019-01-09 15:05 | disposition home or self-care (01) | DRG 194 ==
LOC: EMS 13:57 → 5S 20:20
PROVIDERS: ADMIT Internal Medicine; ATTEND Internal Medicine
DX: I13.0 Hypertensive heart and chronic kidney disease with heart failure and stage 1 through stage 4 chronic kidney disease, or unspecified chronic kidney disease (principal); E11.22 Type 2 diabetes mellitus with diabetic chronic kidney disease; I42.9 Cardiomyopathy, unspecified; I50.21 Acute systolic (congestive) heart failure; M19.90 Unspecified osteoarthritis, unspecified site; K21.9 Gastro-esophageal reflux disease without esophagitis; I48.2 Chronic atrial fibrillation; N18.9 Chronic kidney disease, unspecified; I25.119 Atherosclerotic heart disease of native coronary artery with unspecified angina pectoris; Z79.01 Long term (current) use of anticoagulants; Z95.810 Presence of automatic (implantable) cardiac defibrillator; Z88.8 Allergy status to other drugs, medicaments and biological substances
CPT/HCPCS: 83036; 83735; 84100; 84443; 93005; 93306; 94640; 96374; 96375; G0378; J1940; J2270

== ENCOUNTER 2019-03-09 15:03 | Inpatient (IN) | payer OTHER ==
[~2019-03-09] VITALS: Ht 208.3 cm; Wt 132.5 kg
[~2019-03-09 15:03] MED LIST changes: +APIX5TAB PO; -CARV6 PO; -EDOX15TA PO; -ENAL20 PO; +FURO20 PO; +HYDR10TA31 PO
[2019-03-09] MEDS ORDERED: SACU1TAB PO (15:12)
[2019-03-09 15:41] LABS: EOSINOPHILS % (AUTO) 1.8 % (1.0-6.0); HEMATOCRIT 36.1 % (41-53); HEMOGLOBIN 11.7 g/dL (13.5-17.5); LYMPHOCYTES # (AUTO) 1.2 K/uL (1.0-4.8); LYMPHOCYTES % (AUTO) 34.1 % (22.0-44.0); MEAN CORPUSCULAR HEMOGLOBIN 30.1 pg (26.0-34.0); MEAN CORPUSCULAR HGB CONC 32.4 G/dL (31.0-37.0); MEAN CORPUSCULAR VOLUME 93 fL (80-100); MONOCYTES # (AUTO) 0.4 K/uL (0.1-1.0); MONOCYTES % (AUTO) 10.7 % (2.0-9.0); NEUTROPHILS # (AUTO) 1.9 K/uL (1.8-7.7); NEUTROPHILS % (AUTO) 52.4 % (40.0-70.0); PLATELET COUNT (AUTO) 187 K/uL (150-450); RED BLOOD CELL COUNT(AUTO) 3.89 MIL/uL (4.50-5.90); RED CELL DISTRIBUTION WIDTH 15.2 % (11.5-14.5)
[2019-03-09] MEDS ORDERED: MORPHINE SULFATE 4 MG/ML SYRINGE IVP ONE (15:45)
[2019-03-09] MEDS ORDERED: ONDANSETRON HCL 4 MG/2 ML VIAL IVP ONE (15:45)
[2019-03-09 15:50] LABS: CALCIUM, TOTAL 8.9 mg/dL (8.8-10.5); CREATININE 1.59 mg/dL (0.60-1.30); POTASSIUM 3.8 mmol/L (3.5-5.1)
[2019-03-09 15:56] LABS: ALBUMIN 3.3 g/dL (3.4-5.0); BILIRUBIN,TOTAL 0.6 mg/dL (0.1-1.0); D-DIMER 1.88 mg/L FEU (0.00-0.50); INR 1.2 (0.9-1.1); PROTHROMBIN TIME 12.7 SEC (9.4-11.6); TOTAL PROTEIN, SERUM 6.9 g/dL (6.4-8.2)
[2019-03-09] MEDS ORDERED: DILTIAZEM HCL 5 MG/ML 5 ML VIAL IVP ONE (16:00)
[2019-03-09] MEDS ORDERED: FUROSEMIDE 40 MG/4 ML VIAL IVP ONE (16:30)
[2019-03-09] MEDS ORDERED: 0.9% SODIUM CHLORIDE 10 ML SYRINGE IVP PRN (16:45)
[2019-03-09] MEDS ORDERED: ONDANSETRON HCL 4 MG/2 ML VIAL IVP PRN (16:45)
[2019-03-09] MEDS ORDERED: ACETAMINOPHEN 325 MG TABLET PO PRN ×2 (16:45→19:30)
[2019-03-09] MEDS ORDERED: BISACODYL 10 MG RECTAL RECTAL SUPPOSITORY PR PRN (19:30)
[2019-03-09] MEDS ORDERED: MAGNESIUM HYDROXIDE SUSPENSION 30 ML UDCUP PO PRN (19:30)
[2019-03-09 20:50] VITALS: BP 134/89
[2019-03-09] MEDS: BUMETANIDE 0.25 MG/ML 4 ML VIAL IVP SCH (21:28)
[2019-03-09] MEDS: AMIODARONE HCL 200 MG TABLET PO SCH (21:28)
[2019-03-09] MEDS: SACUBITRIL/VALSARTAN 24-26 MG TABLET PO SCH (21:28)
[2019-03-09] MEDS: DOCUSATE SODIUM 100 MG CAPSULE PO SCH (21:28)
[2019-03-09] MEDS: APIXABAN 5 MG TABLET PO SCH (21:28)
[2019-03-09] MEDS: MORPHINE SULFATE 2 MG/ML SYRINGE IVP PRN (21:45)
[2019-03-09] MEDS: ZOLPIDEM TARTRATE 5 MG TABLET PO PRN (22:26)
[2019-03-10 00:36] VITALS: BP 135/80
[2019-03-10] MEDS: MORPHINE SULFATE 2 MG/ML SYRINGE IVP PRN ×4 (03:43→20:33)
[2019-03-10 05:25] VITALS: BP 152/95
[2019-03-10] MEDS: ONDANSETRON HCL 4 MG/2 ML VIAL IVP PRN (05:33)
[2019-03-10 05:46] LABS: BASOPHILS % (AUTO) 1.4 % (0.0-2.0); EOSINOPHILS % (AUTO) 1.5 % (1.0-6.0); HEMOGLOBIN 12.4 g/dL (13.5-17.5); LYMPHOCYTES # (AUTO) 1.6 K/uL (1.0-4.8); LYMPHOCYTES % (AUTO) 32.5 % (22.0-44.0); MEAN CORPUSCULAR HEMOGLOBIN 30.6 pg (26.0-34.0); MEAN CORPUSCULAR HGB CONC 32.7 G/dL (31.0-37.0); MEAN CORPUSCULAR VOLUME 94 fL (80-100); MONOCYTES # (AUTO) 0.6 K/uL (0.1-1.0); MONOCYTES % (AUTO) 10.9 % (2.0-9.0); NEUTROPHILS # (AUTO) 2.7 K/uL (1.8-7.7); NEUTROPHILS % (AUTO) 53.7 % (40.0-70.0); PLATELET COUNT (AUTO) 199 K/uL (150-450); RED BLOOD CELL COUNT(AUTO) 4.06 MIL/uL (4.50-5.90); RED CELL DISTRIBUTION WIDTH 15.2 % (11.5-14.5)
[2019-03-10 05:59] LABS: CALCIUM, TOTAL 8.5 mg/dL (8.8-10.5); CREATININE 1.79 mg/dL (0.60-1.30); POTASSIUM 3.7 mmol/L (3.5-5.1)
[2019-03-10 07:08] VITALS: BP 128/78
[2019-03-10] MEDS: DOCUSATE SODIUM 100 MG CAPSULE PO SCH ×2 (08:16→20:32)
[2019-03-10] MEDS: HydrALAZINE HCL 10 MG TABLET PO SCH (08:16)
[2019-03-10] MEDS: AMIODARONE HCL 200 MG TABLET PO SCH ×3 (08:16→21:00)
[2019-03-10] MEDS: PANTOPRAZOLE SODIUM 40 MG DR TABLET PO SCH (08:16)
[2019-03-10] MEDS: APIXABAN 5 MG TABLET PO SCH ×2 (08:16→20:32)
[2019-03-10] MEDS: BUMETANIDE 0.25 MG/ML 4 ML VIAL IVP SCH ×3 (08:17→20:31)
[2019-03-10] MEDS: SACUBITRIL/VALSARTAN 24-26 MG TABLET PO SCH ×2 (08:21→22:01)
[2019-03-10 11:31] LABS: APPEARANCE,URINE CLEAR (CLEAR); GLUCOSE, URINE (UA) NEGATIVE (NEGATIVE); KETONES,URINE NEGATIVE (NEGATIVE); LEUKOCYTE ESTERASE ,URINE NEGATIVE (NEGATIVE); NITRATE,URINE NEGATIVE (NEGATIVE); OCCULT BLOOD,URINE NEGATIVE (NEGATIVE); PH,URINE 5.5 (5.0-8.0); PROTEIN,URINE SEE CONFIRM (NEGATIVE)
[2019-03-10 11:50] VITALS: BP 130/80
[2019-03-10 12:03] LABS: BILIRUBIN,URINE PRELIM. POSITIVE (NEGATIVE)
[2019-03-10 12:04] LABS: SULFOSALICYLIC ACID,URINE 3+ (Negative)
[2019-03-10 12:07] LABS: RBC,URINE None Seen /HPF (0-2); WBC,URINE 0-2 /HPF (0-5)
[2019-03-10 12:09] LABS: BACTERIA,URINE None Seen /HPF (None Seen)
[2019-03-10] MEDS: IPRATROPIUM BROMIDE 0.5 MG/2.5 ML NEB SOLUTION NEB PRN (14:21)
[2019-03-10] MEDS: LEVALBUTEROL HCL 0.63 MG/3 ML NEB SOLUTION NEB PRN (14:21)
[2019-03-10 15:51] VITALS: BP 139/97
[2019-03-10] MEDS ORDERED: AMIODARONE HCL 360 MG in DEXTROSE 5%-WATER 242.8 ML IV ONE (17:00)
[2019-03-10] MEDS ORDERED: SODIUM CHLORIDE 0.9% 50 ML ONE (17:26)
[2019-03-10] MEDS: DIGOXIN 250 MCG/ML 2 ML AMP IVP SCH (17:28)
[2019-03-10 19:58] VITALS: BP 136/62
[2019-03-10] MEDS ORDERED: AMIODARONE HCL 540 MG in DEXTROSE 5%-WATER 239.2 ML IV ONE (23:00)
[2019-03-10] MEDS: ZOLPIDEM TARTRATE 5 MG TABLET PO PRN (23:11)
[2019-03-11] VITALS (7 sets, daily range): BP systolic 118–157; BP diastolic 68–125
[2019-03-11] MEDS: DIGOXIN 250 MCG/ML 2 ML AMP IVP SCH (00:15)
[2019-03-11] MEDS: MORPHINE SULFATE 2 MG/ML SYRINGE IVP PRN ×3 (04:14→18:54)
[2019-03-11 06:39] LABS: BASOPHILS % (AUTO) 1.5 % (0.0-2.0); EOSINOPHILS % (AUTO) 1.2 % (1.0-6.0); HEMATOCRIT 36.6 % (41-53); HEMOGLOBIN 11.8 g/dL (13.5-17.5); LYMPHOCYTES # (AUTO) 1.5 K/uL (1.0-4.8); LYMPHOCYTES % (AUTO) 28.5 % (22.0-44.0); MEAN CORPUSCULAR HEMOGLOBIN 30.3 pg (26.0-34.0); MEAN CORPUSCULAR HGB CONC 32.2 G/dL (31.0-37.0); MEAN CORPUSCULAR VOLUME 94 fL (80-100); MONOCYTES # (AUTO) 0.8 K/uL (0.1-1.0); MONOCYTES % (AUTO) 14.6 % (2.0-9.0); NEUTROPHILS # (AUTO) 2.9 K/uL (1.8-7.7); NEUTROPHILS % (AUTO) 54.2 % (40.0-70.0); PLATELET COUNT (AUTO) 174 K/uL (150-450); RED CELL DISTRIBUTION WIDTH 14.7 % (11.5-14.5)
[2019-03-11 07:15] LABS: CALCIUM, TOTAL 8.2 mg/dL (8.8-10.5); CREATININE 2.02 mg/dL (0.60-1.30); POTASSIUM 4.2 mmol/L (3.5-5.1)
[2019-03-11] MEDS: DOCUSATE SODIUM 100 MG CAPSULE PO SCH ×2 (08:26→20:17)
[2019-03-11] MEDS: SACUBITRIL/VALSARTAN 24-26 MG TABLET PO SCH ×2 (08:26→20:16)
[2019-03-11] MEDS: PANTOPRAZOLE SODIUM 40 MG DR TABLET PO SCH (08:27)
[2019-03-11] MEDS: APIXABAN 5 MG TABLET PO SCH ×2 (08:27→20:16)
[2019-03-11] MEDS: HydrALAZINE HCL 10 MG TABLET PO SCH (08:27)
[2019-03-11] MEDS: AMIODARONE HCL 200 MG TABLET PO SCH ×2 (08:27→20:17)
[2019-03-11] MEDS: BUMETANIDE 0.25 MG/ML 4 ML VIAL IVP SCH ×3 (11:25→20:17)
[2019-03-11] MEDS: HYDROCODONE/ACETAMINOPHEN 5-325 MG TABLET PO PRN (12:27)
[2019-03-11 14:06] LABS: ABG A-A DIFF O2 108.3 mmHg (10-20.0); ABG BASE EXCESS -5.6 mmol/L (-2.0-3.0); ABG CARBOXYHEMOGLOBIN 1.4 % (0.0-1.5); ABG HCO3 20.8 mmol/L (22.0-26.0); ABG METHEMOGLOBIN 0.3 % (0.0-1.5); ABG OXYGEN CONTENT 16.7 mL/dL (15.0-23.0); ABG OXYGEN SATURATION 96.4 % (95.0-98.0); ABG OXYHEMOGLOBIN 94.8 % (94.0-100.0); ABG PCO2 29 mmHg (35-45); ABG PH 7.433 (7.35-7.450); ABG TOTAL HEMOGLOBIN 12.5 G/dL (12.0-18.0); O2 DEVICE,BLOOD GAS CANNULA (ROOM AIR); PO2, ARTERIAL BG 86.5 mmHg (84.0-92.0); SITE, BLOOD GAS RT RADIAL; SOURCE, BLOOD GAS ARTERIAL; TEMPERATURE, FAHRENHEIT, BG 98.6 FAHREN (96.0-98.6)
[2019-03-11] MEDS: LEVALBUTEROL HCL 0.63 MG/3 ML NEB SOLUTION NEB SCH ×2 (14:46→19:55)
[2019-03-11] MEDS: IPRATROPIUM BROMIDE 0.5 MG/2.5 ML NEB SOLUTION NEB SCH ×2 (14:46→19:55)
[2019-03-11] MEDS ORDERED: AMIODARONE HCL 750 MG in DEXTROSE 5%-WATER 485 ML IV SCH (17:00)
[2019-03-11] MEDS: BENZOCAINE/MENTHOL LOZENGE PO PRN (18:44)
[2019-03-11] MEDS: ZOLPIDEM TARTRATE 5 MG TABLET PO PRN (22:37)
[2019-03-12 00:19] VITALS: BP 135/83
[2019-03-12] MEDS: MORPHINE SULFATE 2 MG/ML SYRINGE IVP PRN ×4 (00:31→22:34)
[2019-03-12] MEDS: LEVALBUTEROL HCL 0.63 MG/3 ML NEB SOLUTION NEB PRN ×2 (00:41→11:38)
[2019-03-12] MEDS: IPRATROPIUM BROMIDE 0.5 MG/2.5 ML NEB SOLUTION NEB PRN ×2 (00:41→11:38)
[2019-03-12 04:36] VITALS: BP 146/82
[2019-03-12 05:56] LABS: BASOPHILS % (AUTO) 0.8 % (0.0-2.0); EOSINOPHILS % (AUTO) 1.6 % (1.0-6.0); HEMATOCRIT 36.5 % (41-53); LYMPHOCYTES # (AUTO) 1.4 K/uL (1.0-4.8); LYMPHOCYTES % (AUTO) 25.1 % (22.0-44.0); MEAN CORPUSCULAR HEMOGLOBIN 30.6 pg (26.0-34.0); MEAN CORPUSCULAR HGB CONC 32.8 G/dL (31.0-37.0); MEAN CORPUSCULAR VOLUME 93 fL (80-100); MONOCYTES # (AUTO) 0.7 K/uL (0.1-1.0); MONOCYTES % (AUTO) 12.9 % (2.0-9.0); NEUTROPHILS # (AUTO) 3.4 K/uL (1.8-7.7); NEUTROPHILS % (AUTO) 59.6 % (40.0-70.0); PLATELET COUNT (AUTO) 177 K/uL (150-450); RED BLOOD CELL COUNT(AUTO) 3.92 MIL/uL (4.50-5.90); RED CELL DISTRIBUTION WIDTH 14.9 % (11.5-14.5)
[2019-03-12 06:09] LABS: CREATININE 2.04 mg/dL (0.60-1.30); MAGNESIUM 1.3 mg/dL (1.80-2.40); PHOSPHORUS 3.5 mg/dL (2.5-4.9); POTASSIUM 3.8 mmol/L (3.5-5.1)
[2019-03-12] MEDS ORDERED: BENZOCAINE/MENTHOL LOZENGE PO PRN (07:30)
[2019-03-12] MEDS ORDERED: MAGNESIUM SULFATE 2 GM in DEXTROSE 5%-WATER 50 ML IV ONE (07:45)
[2019-03-12 08:06] VITALS: BP 143/90
[2019-03-12] MEDS: IPRATROPIUM BROMIDE 0.5 MG/2.5 ML NEB SOLUTION NEB SCH ×3 (08:24→19:51)
[2019-03-12] MEDS: LEVALBUTEROL HCL 0.63 MG/3 ML NEB SOLUTION NEB SCH ×3 (08:24→19:51)
[2019-03-12] MEDS: AMIODARONE HCL 200 MG TABLET PO SCH ×2 (08:32→20:07)
[2019-03-12] MEDS: HydrALAZINE HCL 10 MG TABLET PO SCH (08:39)
[2019-03-12] MEDS: APIXABAN 5 MG TABLET PO SCH ×2 (08:40→20:07)
[2019-03-12] MEDS: DOCUSATE SODIUM 100 MG CAPSULE PO SCH ×2 (08:41→20:07)
[2019-03-12] MEDS: PANTOPRAZOLE SODIUM 40 MG DR TABLET PO SCH (08:41)
[2019-03-12] MEDS: BENZOCAINE/MENTHOL LOZENGE PO PRN ×2 (08:42→22:34)
[2019-03-12] MEDS: BUMETANIDE 0.25 MG/ML 4 ML VIAL IVP SCH ×4 (08:42→20:07)
[2019-03-12] MEDS ORDERED: SODIUM CHLORIDE 0.9% 100 ML ONE (09:09)
[2019-03-12 10:17] LABS: PROTEIN,URINE RANDOM 140 mg/dL (0-11.9); SODIUM,URINE RANDOM 20 mmol/l (20-110)
[2019-03-12 11:12] VITALS: BP 137/73
[2019-03-12] MEDS: ONDANSETRON HCL 4 MG/2 ML VIAL IVP PRN (11:59)
[2019-03-12] MEDS: SACUBITRIL/VALSARTAN 24-26 MG TABLET PO SCH ×2 (12:27→20:07)
[2019-03-12 15:45] VITALS: BP 160/103
[2019-03-12 17:19] LABS: DIGOXIN 0.42 ng/mL (0.90-2.00)
[2019-03-12] MEDS: DIGOXIN 125 MCG TABLET PO SCH (17:50)
[2019-03-12 20:17] VITALS: BP 151/77
[2019-03-12] MEDS: ZOLPIDEM TARTRATE 5 MG TABLET PO PRN (22:38)
[2019-03-13] VITALS (7 sets, daily range): BP systolic 123–155; BP diastolic 74–84
[2019-03-13] MEDS: IPRATROPIUM BROMIDE 0.5 MG/2.5 ML NEB SOLUTION NEB SCH ×4 (02:00→20:00)
[2019-03-13] MEDS: LEVALBUTEROL HCL 0.63 MG/3 ML NEB SOLUTION NEB SCH ×4 (02:00→20:00)
[2019-03-13] MEDS: MORPHINE SULFATE 2 MG/ML SYRINGE IVP PRN ×4 (03:53→23:29)
[2019-03-13 06:05] LABS: BASOPHILS % (AUTO) 0.6 % (0.0-2.0); EOSINOPHILS % (AUTO) 1.7 % (1.0-6.0); HEMATOCRIT 33.7 % (41-53); LYMPHOCYTES # (AUTO) 1.2 K/uL (1.0-4.8); LYMPHOCYTES % (AUTO) 22.8 % (22.0-44.0); MEAN CORPUSCULAR HEMOGLOBIN 30.2 pg (26.0-34.0); MEAN CORPUSCULAR HGB CONC 32.7 G/dL (31.0-37.0); MEAN CORPUSCULAR VOLUME 92 fL (80-100); MONOCYTES # (AUTO) 0.7 K/uL (0.1-1.0); MONOCYTES % (AUTO) 13.4 % (2.0-9.0); NEUTROPHILS # (AUTO) 3.3 K/uL (1.8-7.7); NEUTROPHILS % (AUTO) 61.5 % (40.0-70.0); PLATELET COUNT (AUTO) 169 K/uL (150-450); RED BLOOD CELL COUNT(AUTO) 3.65 MIL/uL (4.50-5.90)
[2019-03-13 06:16] LABS: CALCIUM, TOTAL 7.9 mg/dL (8.8-10.5); CREATININE 1.87 mg/dL (0.60-1.30); MAGNESIUM 1.5 mg/dL (1.80-2.40); POTASSIUM 3.4 mmol/L (3.5-5.1)
[2019-03-13] MEDS: HydrALAZINE HCL 10 MG TABLET PO SCH (08:19)
[2019-03-13] MEDS: APIXABAN 5 MG TABLET PO SCH ×2 (08:19→20:29)
[2019-03-13] MEDS: AMIODARONE HCL 200 MG TABLET PO SCH ×2 (08:19→20:29)
[2019-03-13] MEDS: DIGOXIN 125 MCG TABLET PO SCH (08:19)
[2019-03-13] MEDS: BUMETANIDE 0.25 MG/ML 4 ML VIAL IVP SCH ×3 (08:19→20:29)
[2019-03-13] MEDS: PANTOPRAZOLE SODIUM 40 MG DR TABLET PO SCH (08:19)
[2019-03-13] MEDS: DOCUSATE SODIUM 100 MG CAPSULE PO SCH ×2 (08:20→20:30)
[2019-03-13] MEDS ORDERED: POTASSIUM CHLORIDE 20 MEQ ER TABLET PO ONE (12:15)
[2019-03-13] MEDS ORDERED: MAGNESIUM SULFATE 2 GM/WATER 50 ML IV ONE (12:15)
[2019-03-13] MEDS: SACUBITRIL/VALSARTAN 24-26 MG TABLET PO SCH ×2 (12:34→20:29)
[2019-03-13] MEDS: ONDANSETRON HCL 4 MG/2 ML VIAL IVP PRN (15:24)
[2019-03-13 17:49] LABS: CALCIUM, TOTAL 8.1 mg/dL (8.8-10.5); CREATININE 1.86 mg/dL (0.60-1.30); MAGNESIUM 1.9 mg/dL (1.80-2.40); PHOSPHORUS 2.9 mg/dL (2.5-4.9)
[2019-03-13] MEDS: BENZOCAINE/MENTHOL LOZENGE PO PRN (19:05)
[2019-03-13] MEDS: ZOLPIDEM TARTRATE 5 MG TABLET PO PRN (23:29)
[2019-03-14] MEDS: LEVALBUTEROL HCL 0.63 MG/3 ML NEB SOLUTION NEB SCH ×4 (02:00→20:17)
[2019-03-14] MEDS: IPRATROPIUM BROMIDE 0.5 MG/2.5 ML NEB SOLUTION NEB SCH ×4 (02:00→20:17)
[2019-03-14] MEDS: BENZOCAINE/MENTHOL LOZENGE PO PRN (05:19)
[2019-03-14] MEDS: MORPHINE SULFATE 2 MG/ML SYRINGE IVP PRN ×3 (05:19→18:53)
[2019-03-14 05:30] VITALS: BP 153/98
[2019-03-14 07:15] VITALS: BP 134/89
[2019-03-14 07:30] LABS: BASOPHILS % (AUTO) 0.5 % (0.0-2.0); EOSINOPHILS % (AUTO) 2.2 % (1.0-6.0); HEMATOCRIT 33.9 % (41-53); HEMOGLOBIN 11.1 g/dL (13.5-17.5); LYMPHOCYTES # (AUTO) 1.2 K/uL (1.0-4.8); LYMPHOCYTES % (AUTO) 27.2 % (22.0-44.0); MEAN CORPUSCULAR HEMOGLOBIN 30.5 pg (26.0-34.0); MEAN CORPUSCULAR HGB CONC 32.6 G/dL (31.0-37.0); MEAN CORPUSCULAR VOLUME 94 fL (80-100); MONOCYTES # (AUTO) 0.7 K/uL (0.1-1.0); NEUTROPHILS # (AUTO) 2.5 K/uL (1.8-7.7); NEUTROPHILS % (AUTO) 55.1 % (40.0-70.0); PLATELET COUNT (AUTO) 176 K/uL (150-450); RED BLOOD CELL COUNT(AUTO) 3.62 MIL/uL (4.50-5.90); RED CELL DISTRIBUTION WIDTH 15.2 % (11.5-14.5)
[2019-03-14 07:54] LABS: CREATININE 1.71 mg/dL (0.60-1.30); MAGNESIUM 1.6 mg/dL (1.80-2.40); PHOSPHORUS 2.6 mg/dL (2.5-4.9)
[2019-03-14] MEDS: SACUBITRIL/VALSARTAN 24-26 MG TABLET PO SCH ×2 (08:22→20:30)
[2019-03-14] MEDS: APIXABAN 5 MG TABLET PO SCH ×2 (08:22→20:30)
[2019-03-14] MEDS: BUMETANIDE 0.25 MG/ML 4 ML VIAL IVP SCH ×3 (08:22→20:30)
[2019-03-14] MEDS: DIGOXIN 125 MCG TABLET PO SCH (08:22)
[2019-03-14] MEDS: PANTOPRAZOLE SODIUM 40 MG DR TABLET PO SCH (08:22)
[2019-03-14] MEDS: AMIODARONE HCL 200 MG TABLET PO SCH ×2 (08:22→20:29)
[2019-03-14] MEDS: DOCUSATE SODIUM 100 MG CAPSULE PO SCH ×2 (08:22→20:30)
[2019-03-14] MEDS: HydrALAZINE HCL 10 MG TABLET PO SCH (08:26)
[2019-03-14] MEDS ORDERED: MAGNESIUM SULFATE 1 GM in DEXTROSE 5%-WATER 50 ML IV ONE (08:30)
[2019-03-14 12:31] VITALS: BP 139/70
[2019-03-14 15:20] VITALS: BP 137/61
[2019-03-14 19:37] VITALS: BP 123/78
[2019-03-14 23:10] VITALS: BP 130/81
[2019-03-15] MEDS: ZOLPIDEM TARTRATE 5 MG TABLET PO PRN ×2 (00:07→23:51)
[2019-03-15] MEDS: MORPHINE SULFATE 2 MG/ML SYRINGE IVP PRN ×5 (00:09→20:32)
[2019-03-15] MEDS: IPRATROPIUM BROMIDE 0.5 MG/2.5 ML NEB SOLUTION NEB SCH ×4 (02:00→20:08)
[2019-03-15] MEDS: LEVALBUTEROL HCL 0.63 MG/3 ML NEB SOLUTION NEB SCH ×4 (02:00→20:08)
[2019-03-15] MEDS: BENZOCAINE/MENTHOL LOZENGE PO PRN ×3 (05:25→20:33)
[2019-03-15 05:37] VITALS: BP 128/75
[2019-03-15 06:51] LABS: BASOPHILS % (AUTO) 0.8 % (0.0-2.0); EOSINOPHILS % (AUTO) 1.6 % (1.0-6.0); HEMATOCRIT 31.9 % (41-53); HEMOGLOBIN 10.7 g/dL (13.5-17.5); LYMPHOCYTES # (AUTO) 1.3 K/uL (1.0-4.8); LYMPHOCYTES % (AUTO) 28.3 % (22.0-44.0); MEAN CORPUSCULAR HEMOGLOBIN 30.7 pg (26.0-34.0); MEAN CORPUSCULAR HGB CONC 33.5 G/dL (31.0-37.0); MEAN CORPUSCULAR VOLUME 92 fL (80-100); MONOCYTES # (AUTO) 0.7 K/uL (0.1-1.0); MONOCYTES % (AUTO) 14.4 % (2.0-9.0); NEUTROPHILS # (AUTO) 2.5 K/uL (1.8-7.7); NEUTROPHILS % (AUTO) 54.9 % (40.0-70.0); PLATELET COUNT (AUTO) 169 K/uL (150-450); RED BLOOD CELL COUNT(AUTO) 3.48 MIL/uL (4.50-5.90); RED CELL DISTRIBUTION WIDTH 14.8 % (11.5-14.5)
[2019-03-15 07:13] LABS: ALBUMIN 2.9 g/dL (3.4-5.0); BILIRUBIN,TOTAL 0.8 mg/dL (0.1-1.0); CREATININE 1.69 mg/dL (0.60-1.30); MAGNESIUM 1.6 mg/dL (1.80-2.40); PHOSPHORUS 2.8 mg/dL (2.5-4.9); POTASSIUM 4.3 mmol/L (3.5-5.1); TOTAL PROTEIN, SERUM 6.1 g/dL (6.4-8.2)
[2019-03-15 07:32] VITALS: BP 149/92
[2019-03-15] MEDS ORDERED: MAGNESIUM SULFATE 2 GM in DEXTROSE 5%-WATER 50 ML IV ONE (08:00)
[2019-03-15] MEDS: DOCUSATE SODIUM 100 MG CAPSULE PO SCH ×2 (09:00→20:31)
[2019-03-15] MEDS: HydrALAZINE HCL 10 MG TABLET PO SCH (09:01)
[2019-03-15] MEDS: AMIODARONE HCL 200 MG TABLET PO SCH ×2 (09:01→20:32)
[2019-03-15] MEDS: SACUBITRIL/VALSARTAN 24-26 MG TABLET PO SCH ×2 (09:01→20:32)
[2019-03-15] MEDS: PANTOPRAZOLE SODIUM 40 MG DR TABLET PO SCH (09:01)
[2019-03-15] MEDS: APIXABAN 5 MG TABLET PO SCH ×2 (09:01→20:32)
[2019-03-15] MEDS: DIGOXIN 125 MCG TABLET PO SCH (09:01)
[2019-03-15] MEDS: BUMETANIDE 0.25 MG/ML 4 ML VIAL IVP SCH ×3 (09:02→20:31)
[2019-03-15 10:53] VITALS: BP 120/80
[2019-03-15 16:15] VITALS: BP 135/92
[2019-03-15 19:40] VITALS: BP 147/91
[2019-03-15 23:57] VITALS: BP 118/67
[2019-03-16] MEDS: MORPHINE SULFATE 2 MG/ML SYRINGE IVP PRN ×5 (00:56→22:15)
[2019-03-16] MEDS: IPRATROPIUM BROMIDE 0.5 MG/2.5 ML NEB SOLUTION NEB SCH ×4 (02:00→20:00)
[2019-03-16] MEDS: LEVALBUTEROL HCL 0.63 MG/3 ML NEB SOLUTION NEB SCH ×4 (02:00→19:59)
[2019-03-16 04:55] VITALS: BP 118/80
[2019-03-16 06:00] LABS: EOSINOPHILS % (AUTO) 1.9 % (1.0-6.0); HEMATOCRIT 33.9 % (41-53); HEMOGLOBIN 10.9 g/dL (13.5-17.5); LYMPHOCYTES # (AUTO) 1.1 K/uL (1.0-4.8); LYMPHOCYTES % (AUTO) 24.5 % (22.0-44.0); MEAN CORPUSCULAR HGB CONC 32.1 G/dL (31.0-37.0); MEAN CORPUSCULAR VOLUME 94 fL (80-100); MONOCYTES # (AUTO) 0.7 K/uL (0.1-1.0); MONOCYTES % (AUTO) 16.7 % (2.0-9.0); NEUTROPHILS # (AUTO) 2.5 K/uL (1.8-7.7); NEUTROPHILS % (AUTO) 55.9 % (40.0-70.0); PLATELET COUNT (AUTO) 188 K/uL (150-450); RED BLOOD CELL COUNT(AUTO) 3.62 MIL/uL (4.50-5.90)
[2019-03-16] MEDS: BENZOCAINE/MENTHOL LOZENGE PO PRN ×2 (06:10→22:21)
[2019-03-16 06:24] LABS: ALBUMIN 2.9 g/dL (3.4-5.0); BILIRUBIN,TOTAL 0.6 mg/dL (0.1-1.0); CALCIUM, TOTAL 8.4 mg/dL (8.8-10.5); CREATININE 1.69 mg/dL (0.60-1.30); MAGNESIUM 1.7 mg/dL (1.80-2.40); PHOSPHORUS 2.9 mg/dL (2.5-4.9); POTASSIUM 4.3 mmol/L (3.5-5.1); TOTAL PROTEIN, SERUM 6.6 g/dL (6.4-8.2)
[2019-03-16 07:45] VITALS: BP 133/92
[2019-03-16] MEDS ORDERED: MAGNESIUM SULFATE 2 GM in DEXTROSE 5%-WATER 50 ML IV ONE (08:00)
[2019-03-16] MEDS: DOCUSATE SODIUM 100 MG CAPSULE PO SCH ×3 (09:00→21:00)
[2019-03-16] MEDS: SACUBITRIL/VALSARTAN 24-26 MG TABLET PO SCH ×4 (09:00→20:39)
[2019-03-16] MEDS ORDERED: SODIUM CHLORIDE 0.9% 100 ML ONE (09:03)
[2019-03-16] MEDS: APIXABAN 5 MG TABLET PO SCH ×2 (09:12→20:39)
[2019-03-16] MEDS: BUMETANIDE 0.25 MG/ML 4 ML VIAL IVP SCH ×3 (09:12→20:39)
[2019-03-16] MEDS: AMIODARONE HCL 200 MG TABLET PO SCH ×2 (09:12→20:39)
[2019-03-16] MEDS: PANTOPRAZOLE SODIUM 40 MG DR TABLET PO SCH (09:13)
[2019-03-16] MEDS: HydrALAZINE HCL 10 MG TABLET PO SCH (09:13)
[2019-03-16] MEDS: DIGOXIN 125 MCG TABLET PO SCH (09:13)
[2019-03-16 12:01] VITALS: BP 124/82
[2019-03-16 16:58] VITALS: BP 126/78
[2019-03-16 19:43] VITALS: BP 141/88
[2019-03-16] MEDS: HYDROCODONE/ACETAMINOPHEN 5-325 MG TABLET PO PRN (20:53)
[2019-03-16] MEDS: ZOLPIDEM TARTRATE 5 MG TABLET PO PRN (22:58)
[2019-03-17 00:28] VITALS: BP 138/87
[2019-03-17] MEDS: IPRATROPIUM BROMIDE 0.5 MG/2.5 ML NEB SOLUTION NEB SCH ×4 (02:00→20:37)
[2019-03-17] MEDS: LEVALBUTEROL HCL 0.63 MG/3 ML NEB SOLUTION NEB SCH ×4 (02:00→20:37)
[2019-03-17] MEDS: MORPHINE SULFATE 2 MG/ML SYRINGE IVP PRN ×4 (03:48→21:02)
[2019-03-17 04:42] VITALS: BP 142/95
[2019-03-17 05:45] LABS: CALCIUM, TOTAL 8.3 mg/dL (8.8-10.5); CREATININE 1.67 mg/dL (0.60-1.30); MAGNESIUM 1.8 mg/dL (1.80-2.40); PHOSPHORUS 2.8 mg/dL (2.5-4.9); POTASSIUM 3.9 mmol/L (3.5-5.1)
[2019-03-17 07:41] VITALS: BP 125/80
[2019-03-17] MEDS: BUMETANIDE 0.25 MG/ML 4 ML VIAL IVP SCH ×3 (08:57→21:02)
[2019-03-17] MEDS: APIXABAN 5 MG TABLET PO SCH ×2 (08:57→21:02)
[2019-03-17] MEDS: PANTOPRAZOLE SODIUM 40 MG DR TABLET PO SCH (08:58)
[2019-03-17] MEDS: DIGOXIN 125 MCG TABLET PO SCH (08:58)
[2019-03-17] MEDS: AMIODARONE HCL 200 MG TABLET PO SCH ×2 (08:58→21:02)
[2019-03-17] MEDS: SACUBITRIL/VALSARTAN 24-26 MG TABLET PO SCH ×2 (08:58→21:02)
[2019-03-17] MEDS: HydrALAZINE HCL 10 MG TABLET PO SCH (09:00)
[2019-03-17] MEDS: DOCUSATE SODIUM 100 MG CAPSULE PO SCH ×2 (09:00→21:00)
[2019-03-17 11:35] VITALS: BP 126/78
[2019-03-17 15:58] VITALS: BP 135/79
[2019-03-17 20:04] VITALS: BP 135/86
[2019-03-17] MEDS: BENZOCAINE/MENTHOL LOZENGE PO PRN (21:01)
[2019-03-17] MEDS: ZOLPIDEM TARTRATE 5 MG TABLET PO PRN (23:29)
[2019-03-18 00:47] VITALS: BP 126/72
[2019-03-18] MEDS: LEVALBUTEROL HCL 0.63 MG/3 ML NEB SOLUTION NEB SCH ×3 (02:00→14:00)
[2019-03-18] MEDS: IPRATROPIUM BROMIDE 0.5 MG/2.5 ML NEB SOLUTION NEB SCH ×3 (02:00→14:00)
[2019-03-18] MEDS: BENZOCAINE/MENTHOL LOZENGE PO PRN ×3 (02:24→11:08)
[2019-03-18] MEDS: MORPHINE SULFATE 2 MG/ML SYRINGE IVP PRN ×3 (02:25→11:04)
[2019-03-18] MEDS: LEVALBUTEROL HCL 0.63 MG/3 ML NEB SOLUTION NEB PRN (04:23)
[2019-03-18] MEDS: IPRATROPIUM BROMIDE 0.5 MG/2.5 ML NEB SOLUTION NEB PRN (04:23)
[2019-03-18 05:20] VITALS: BP 141/102
[2019-03-18 07:48] VITALS: BP 141/90
[2019-03-18] MEDS: DOCUSATE SODIUM 100 MG CAPSULE PO SCH (08:42)
[2019-03-18] MEDS: DIGOXIN 125 MCG TABLET PO SCH (08:44)
[2019-03-18] MEDS: PANTOPRAZOLE SODIUM 40 MG DR TABLET PO SCH (08:44)
[2019-03-18] MEDS: SACUBITRIL/VALSARTAN 24-26 MG TABLET PO SCH (08:44)
[2019-03-18] MEDS: HydrALAZINE HCL 10 MG TABLET PO SCH (08:44)
[2019-03-18] MEDS: BUMETANIDE 0.25 MG/ML 4 ML VIAL IVP SCH (08:44)
[2019-03-18] MEDS: APIXABAN 5 MG TABLET PO SCH (08:44)
[2019-03-18] MEDS: AMIODARONE HCL 200 MG TABLET PO SCH (08:44)
[2019-03-18 11:34] VITALS: BP 117/90
[2019-03-18] MEDS ORDERED: IPRAHFA IH (11:36)
== END 2019-03-18 12:24 | disposition home or self-care (01) | DRG 133 ==
LOC: EMS 15:03 → EDBD 15:03 → 5S 18:10
PROVIDERS: ADMIT Internal Medicine; ATTEND Internal Medicine
DX: J96.01 Acute respiratory failure with hypoxia (principal); I50.23 Acute on chronic systolic (congestive) heart failure; I42.9 Cardiomyopathy, unspecified; N17.9 Acute kidney failure, unspecified; E83.42 Hypomagnesemia; I48.2 Chronic atrial fibrillation; N18.3 Chronic kidney disease, stage 3 (moderate); I13.0 Hypertensive heart and chronic kidney disease with heart failure and stage 1 through stage 4 chronic kidney disease, or unspecified chronic kidney disease; N18.9 Chronic kidney disease, unspecified; D63.8 Anemia in other chronic diseases classified elsewhere; E87.6 Hypokalemia; F12.90 Cannabis use, unspecified, uncomplicated; I25.10 Atherosclerotic heart disease of native coronary artery without angina pectoris; Z79.01 Long term (current) use of anticoagulants; Z79.899 Other long term (current) drug therapy; Z95.810 Presence of automatic (implantable) cardiac defibrillator
CPT/HCPCS: 36600; 82570; 82805; 83735; 84100; 84156; 84300; 85379; 93005; 94640; G0378; J0282; J1160; J1940; J2270; J2405; J3475; J3490; J7050; J7060

== ENCOUNTER 2021-01-24 08:22 | Day surgery (SDC) | payer OTHER ==
[2021-01-23 11:39] LABS: BASOPHILS % (AUTO) 1.2 % (0.0-2.0); EOSINOPHILS % (AUTO) 2.9 % (1.0-6.0); HEMATOCRIT 29.4 % (41-53); HEMOGLOBIN 9.3 g/dL (13.5-17.5); LYMPHOCYTES # (AUTO) 0.8 K/uL (1.0-4.8); MEAN CORPUSCULAR HGB CONC 31.5 G/dL (31.0-37.0); MEAN CORPUSCULAR VOLUME 79 fL (80-100); MONOCYTES # (AUTO) 0.7 K/uL (0.1-1.0); MONOCYTES % (AUTO) 16.5 % (2.0-9.0); NEUTROPHILS # (AUTO) 2.4 K/uL (1.8-7.7); NEUTROPHILS % (AUTO) 60.4 % (40.0-70.0); PLATELET COUNT (AUTO) 132 K/uL (150-450); RED BLOOD CELL COUNT(AUTO) 3.71 MIL/uL (4.50-5.90); RED CELL DISTRIBUTION WIDTH 22.2 % (11.5-14.5)
[2021-01-23 11:41] LABS: COVID AG,FIA SOURCE NASOPHARYNGEAL
[2021-01-23 11:51] LABS: INR 1.3 (0.9-1.1); PROTHROMBIN TIME 13.8 SEC (9.4-11.6)
[2021-01-23 11:56] LABS: CREATININE 1.93 mg/dL (0.60-1.30); POTASSIUM 4.8 mmol/L (3.5-5.1)
[2021-01-23 12:10] LABS: ALBUMIN 3.7 g/dL (3.4-5.0); BILIRUBIN,TOTAL 1.1 mg/dL (0.1-1.0); TOTAL PROTEIN, SERUM 7.9 g/dL (6.4-8.2)
[~2021-01-24] VITALS: Ht 208.3 cm; Wt 146.8 kg
[~2021-01-24 08:22] MED LIST changes: -AMIO200T44 PO; +AMIO200T68 PO; -BUME1TAB17 PO; +BUME1TAB34 PO; +CARV6 PO; +DIGO125T84 PO; -FURO20 PO; -HYDR-309 PO; +IPRAHFA IH; +ISOS30TA92 PO; -MORP30TA11 PO; +SACU1TAB PO; +SODIUM CHLORIDE 0.9% 1,000 ML IV ONE; +SODIUM CHLORIDE 0.9% 1,000 ML ONE; +SPIR25 PO
[2021-01-24] MEDS ORDERED: HYDR50TA36 PO (08:44)
[2021-01-24] MEDS ORDERED: POTA20TA83 PO (08:44)
[2021-01-24] MEDS ORDERED: BACL10TA PO (08:44)
[2021-01-24] MEDS ORDERED: SACU1TAB7 PO (08:44)
[2021-01-24] MEDS ORDERED: CARV12 PO (08:44)
[2021-01-24] MEDS ORDERED: PREG50 PO ×2 (08:44)
[2021-01-24] MEDS ORDERED: GELATIN SPONGE,ABSORBABLE 12-7 MM TP ONE (09:11)
[2021-01-24] MEDS ORDERED: MIDAZOLAM HCL 2 MG/2 ML VIAL ONE ×2 (09:20→09:58)
[2021-01-24] MEDS ORDERED: FentaNYL CITRATE PF 100 MCG/2 ML VIAL ONE ×2 (09:20→09:58)
[2021-01-24] MEDS ORDERED: FentaNYL CITRATE PF 100 MCG/2 ML VIAL IVP ONE (10:05)
[2021-01-24] MEDS ORDERED: MIDAZOLAM HCL 2 MG/2 ML VIAL IVP ONE (10:05)
== END 2021-01-24 14:00 | disposition home or self-care (01) ==
LOC: SDS 08:22
PROVIDERS: ATTEND Radiology Body Imaging
DX: R80.9 Proteinuria, unspecified (principal); I10 Essential (primary) hypertension; Z88.8 Allergy status to other drugs, medicaments and biological substances; Z98.890 Other specified postprocedural states; Z95.4 Presence of other heart-valve replacement; Z79.899 Other long term (current) drug therapy
CPT/HCPCS: 36415; 50200; 77012; 80053; 85025; 85610; 85730; 87426; 88300; 93005; C9803; J2250; J3010; J7030